=== PATIENT | female | born 1955 | race Two or more races ===

== ENCOUNTER 2017-03-05 14:08 | Emergency (ER) | payer MEDICAID ==
[~2017-03-05] VITALS: Ht 167.6 cm; Wt 74.8 kg
[~2017-03-05 14:08] MED LIST: ACETAMINOPHEN-1 EAC1 ORAL; AUGMENTIN 875-1 EAC1 ORAL; IBUPROFEN600 MG ORAL
[2017-03-05 14:30] VITALS: BP 143/86
[2017-03-05] MEDS ORDERED: Norco 5mg/325mg tab ORAL ONE (14:45)
[2017-03-05] MEDS ORDERED: NORCO 5-325 TA1 EAC1 ORAL (14:53)
[2017-03-05] MEDS ORDERED: IBUPROFEN600 MG ORAL (14:53)
[2017-03-05 15:13] VITALS: BP 143/86
--- NOTE | 2017-03-05 15:32 | Diagnostic Imaging Report ---
Indications: PAIN right knee pain Technique: Three views of the right knee Comparison: None Findings: No acute fractures. No dislocations. Joint spaces are preserved. No radiopaque foreign body. Normal mineralization. Impression: No acute process
--- NOTE | 2017-03-05 15:35 | Diagnostic Imaging Report ---
Indication: PAIN Technique: 3 views of the left shoulder Comparison: none Findings: There is a comminuted fracture of the left humeral neck and as the. Bones are osteoporotic. The joint spaces are preserved. Impression:Positive for left humeral fracture
--- NOTE | 2017-03-05 17:30 | Emergency Room Report ---
History of Present Illness General Chief Complaint: Multiple Trauma/Fall Source: Patient Present Illness HPI The patient is a 61-year-old female presenting for left shoulder pain and right knee pain after falling today. She states that she tripped and fell. She denies hitting her head or loss of consciousness. She admits to a history of osteoporosis. Pain is primarily at the left shoulder described as an 8/10 dull ache. Worse with touch. She states that she is unable to move the left shoulder. She denies previous injury pain to the right knee is a 5 at 10 dull ache. Worse with movement and touch. She denies any other symptoms including nausea, vomiting, neck pain, headache, dizziness, chest pain, shortness of breath, numbness or tingling. Allergies: Coded Allergies: No Known Allergies (Unverified , 06/24/15) Patient History Past Medical History: see triage record Pertinent Family History: none Reviewed Nursing Documentation: PMH: Agreed, PSxH: Agreed Nursing Documentation-PMH Past Medical History: No History, Except For Hx Hypertension: No - hyperlipidimia Hx Asthma: Yes Review of Systems All Other Systems: negative except mentioned in HPI Physical Exam Vital Signs Date Time Temp Pulse Resp B/P (MAP) Pulse Ox O2 Delivery O2 Flow Rate FiO2 03/05/17 14:22 98.2 71 16 143/86 97 Room Air Sp02 EP Interpretation: reviewed, normal General Appearance: no apparent distress, alert, GCS 15, non-toxic Head: normocephalic, atraumatic Eyes: bilateral eye normal inspection, bilateral eye PERRL ENT: hearing grossly normal, normal pharynx, no angioedema, normal voice Neck: full range of motion, supple/symm/no masses Musculoskeletal: back normal, gait/station normal, normal range of motion, decreased range of motion - L shoulder, swelling - R knee and L shoulder, tender - R anterior knee, L anterior deltoid Neurologic: alert, oriented x3, responsive, motor strength/tone normal, sensory intact, speech normal Psychiatric: judgement/insight normal, memory normal, mood/affect normal, no suicidal/homicidal ideation Skin: normal color, no rash, warm/dry, well hydrated, normal turgor, abrasions - R knee Procedures Splinting Splinting : Consent: Verbal Location: L arm Pre-Made Type: sling Pre-Proc Neuro Vasc Exam: normal Post-Proc Neuro Vasc Exam: normal Patient Tolerated: Well Complications: None Medical Decision Making PA Attestation Dr. Gonzalez is my supervising physician. Patient management was discussed with my supervising physician Diagnostic Impression: Primary Impression: Fracture, humerus Additional Impressions: Fall Qualified Codes: W19.XXXA - Unspecified fall, initial encounter Contusion of knee, right Qualified Codes: S80.01XA - Contusion of right knee, initial encounter ER Course The patient is a 61-year-old female presenting for left shoulder pain and right knee pain after falling today. Ddx considered include but not limited to sprain/strain, fracture, contusion Physical exam: No apparent distress Neck is soft and supple. Full active range of motion is intact. Nontender. No tenderness over the clavicle or deformity. There is tenderness to palpation and swelling over the left anterior deltoid. No active range of motion. Right knee has an abrasion anteriorly. Tenderness to palpation as well. Full active range of motion is intact. Normal gait. X-ray of the left shoulder shows a fracture of the proximal humerus. X-ray of the knee unremarkable A sling was placed over the left shoulder and the patient is to followup with her primary doctor as well as orthopedics as soon as possible. She is given a prescription for pain medication. ER precautions given Other X-Ray Diagnostic Results Other X-Ray Diagnostic Results #1: X-Ray ordered: R knee # of Views/Limited Vs Complete: 3 View Indication: Pain EP Interpretation: Yes PA Xray: Interpretation reviewed, by supervising MD, and agrees with findings. Interpretation: no dislocation, no soft tissue swelling, no fractures Impression: No acute disease Electronically Signed by: Ori Mc PA-C Other X-Ray Diagnostic Results #2: X-Ray ordered: L shoulder # of Views/Limited Vs Complete: 3 View Indication: Pain EP Interpretation: Yes PA Xray: Interpretation reviewed, by supervising MD, and agrees with findings. Interpretation: no dislocation, other - Fracture of humerus Impression: Other - fracture Electronically Signed by: Ori Mc PA-C Last Vital Signs Date Time Temp Pulse Resp B/P (MAP) Pulse Ox O2 Delivery O2 Flow Rate FiO2 03/05/17 15:13 98.0 78 18 143/86 99 Room Air Status: improved Disposition: HOME, SELF-CARE Condition: Improved Scripts Hydrocodone Bit/Acetaminophen 5-325* (NORCO 5-325 TABLET*) 1 Each Tablet 1 TAB ORAL Q6HR Y for For Pain, #8 TAB Prov: ORI MC 03/05/17 Ibuprofen* (MOTRIN*) 600 Mg Tablet 600 MG ORAL Q8H Y for For Pain, #30 TAB 0 Refills Prov: ORI MC 03/05/17 Referrals: [facility],REFERRING (PCP) Patient Instructions: Contusion, Shoulder Fracture Additional Instructions: I discussed my findings with the patient. All questions and concerns have been answered. Treatment and medication compliance have been addressed. I advised the patient that they need to follow up with PMD in 3-5 days. Return to ED if pain remains or worsens, numbness or tingling occurs, new rash is noticed, fever is noticed, or if needed for any reason. Patient verbalized understanding of discharge instructions. Need to follow up with orthopedics for further evaluation and treatment. ORI MC Mar 05, 2017 17:30
== END 2017-03-05 15:13 | disposition home or self-care (01) ==
LOC: EMR 15:05
DX: S42.292A Other displaced fracture of upper end of left humerus, initial encounter for closed fracture (principal); S80.01XA Contusion of right knee, initial encounter; W01.0XXA Fall on same level from slipping, tripping and stumbling without subsequent striking against object, initial encounter; Y92.9 Unspecified place or not applicable; J45.909 Unspecified asthma, uncomplicated
CPT/HCPCS: 99284